=== PATIENT | male | born 1960 | race Asian ===

== ENCOUNTER 2017-04-09 09:19 | Day surgery (SDC) | payer BC ==
[~2017-04-09] VITALS: Ht 170.2 cm; Wt 72.2 kg
[~2017-04-09 09:19] MED LIST: ASPI81TA3 PO; LEVO200T6 PO; LISI40TA9 PO; METO-429 PO; METO50TA16 PO; MULT-761 PO; ROSU40TA35 PO; SYN2 PO
[2017-04-09 10:00] VITALS: Ht 170.2 cm; Wt 72.2 kg
[2017-04-09] MEDS ORDERED: EZET10TA3 PO (10:10)
[2017-04-09] MEDS ORDERED: LISI20TA11 PO (10:11)
[2017-04-09] MEDS ORDERED: MELO7.5O PO (10:11)
[2017-04-09 10:40] VITALS: BP 138/91; PULSE 94; RESP 18
--- NOTE | 2017-04-09 11:18 | OPPN ---
Date/Time of Note Date/Time of Note DATE: 04/09/17 TIME: 11:13 Proc Note GI Procedure date: Apr 09, 2017 Pre-procedure Diagnosis Rule out colon polyp Post-procedure Diagnosis 3 mm polyp noted at 5 cm from the anus Diverticulosis Moderate degree of external hemorrhoid Operation Performed Colonoscopy: Surgeon: YOANA WATSON MD Anesthesia Type: moderate sedation Tourniquet Time: None Estimated blood loss: none Transfusion Required: no Specimens 2 mm polyp noted at 5 cm from the anus this was removed with the cold biopsy forceps Grafts/Implants None Tubes/Drains None Complications: no Complications None Pt Condition post procedure: stable Indications Rule out colon polyps Operative\Procedure Findings 2 mm flat polyp was noted to 5 cm from the anus Diverticulosis Procedure Description After informed written consent is obtained patient was asked to lay in the left lateral side 40 mg Versed 75 mcg of fentanyl was given as intravenous anesthesia When the patient become somnolent Olympus video colonoscope was introduced into the rectum and scope was advanced all the way to the cecum Moderate degree of diverticulosis noted along the colon and is not bleeding. Entire colon was examined thoroughly no polyps noted except on the way out 2 mm flat polyp was noted located at 5 cm above the anus No internal hemorrhoids were noted Scope was withdrawn a moderate degree of external hemorrhoids were noted At this time procedure was terminated Plan wait for the pathology to Please send copy to my office and also to the primary doctor cc; my office YOANA WATSON MD Apr 09, 2017 11:18
[2017-04-09 11:27] VITALS: BP 113/76; PULSE 94; RESP 12
[2017-04-09] MEDS ORDERED: FENTAnyl 50 MCG/ML VIAL ONE (11:30)
[2017-04-09] MEDS ORDERED: MIDAZOLAM 1 MG/ML 2 ML INJ ONE ×2 (11:30)
== END 2017-04-09 13:29 | disposition home or self-care (01) ==
LOC: GIL 09:19
PROVIDERS: ATTEND Internal Medicine Gastroenterology
DX: Z12.11 Encounter for screening for malignant neoplasm of colon (principal); K63.5 Polyp of colon; K57.90 Diverticulosis of intestine, part unspecified, without perforation or abscess without bleeding; K64.8 Other hemorrhoids; I10 Essential (primary) hypertension; E78.00 Pure hypercholesterolemia, unspecified
CPT/HCPCS: 45380; J2250; J3010

== ENCOUNTER 2017-10-22 12:43 | Emergency (ER) | END 2017-10-22 16:06 | disposition home or self-care (01) ==

== ENCOUNTER 2018-08-23 14:14 | Emergency (ER) | END 2018-08-23 15:10 | disposition home or self-care (01) ==